=== PATIENT | male | born 1980 | race Caucasian/White ===

== ENCOUNTER → 2017-04-22 | Outpatient (CLI) | payer BC ==
--- NOTE | 2017-04-22 16:04 | RAD ---
Two-view left ankle study Clinical indications: Left ankle pain. Patient tripped in November 2016 and has had continued pain since. Findings: No acute fracture or dislocation or osteolytic process or periosteal reaction is seen. The mortise ankle joint is intact. Small plantar and posterior spurs the calcaneus are seen. IMPRESSION: No acute osseous abnormality is evident.
== END | disposition home or self-care (01) ==
LOC: PMG 15:48
PROVIDERS: ATTEND Physician Assistant
DX: M25.572 Pain in left ankle and joints of left foot (principal)
CPT/HCPCS: 73600